=== PATIENT | male | born 1970 | race Two or more races ===

== ENCOUNTER 2023-10-02 01:28 | Emergency (ER) | payer SELFPAY ==
[~2023-10-02] VITALS: Ht 177.8 cm; Wt 86.0 kg
[2023-10-02] MEDS ORDERED: ACCU-CHEK COMFORT CURVE STRIP VI ONE (01:30)
[2023-10-02 02:12] LABS: Basophils # (auto) 0.1 10 ^3/uL (0-0.2); Eosinophils # (auto) 0.2 10 ^3/uL (0-0.8); Eosinophils % (auto) 1.4 % (0.0-7.0); Hematocrit 49.8 % (41.0-53.0); Hemoglobin 16.7 g/dL (13.5-17.5); Lymphocytes # (auto) 2.8 10 ^3/uL (0.4-5.4); Lymphocytes % (auto) 24.8 % (10.0-50.0); Mean Corpuscular Hemoglobin 30.5 pg (28.0-32.0); Mean Corpuscular Hgb Conc. 33.6 g/dL (32.0-36.0); Mean Corpuscular Volume 90.7 fL (80.0-100.0); Monocytes # (auto) 0.6 10 ^3/uL (0-1.3); Monocytes % (auto) 5.3 % (0.0-12.0); Neutrophils # (auto) 7.7 10 ^3/uL (1.6-8.6); Neutrophils % (auto) 67.5 % (37.0-80.0); Nucleated Red Blood Cells % 0.1 %; Red Blood Cells 5.49 10^6/uL (4.5-5.90); White Blood Cell 11.3 10^3/uL (4.4-10.8)
[2023-10-02 02:28] VITALS: PULSE 70; RESP 15; O2SAT 93
[2023-10-02] MEDS ORDERED: levETIRAcetam 1000 mg/100ml 100 ML IV ONE (02:30)
[2023-10-02 02:31] LABS: Alanine Aminotransferase 29 U/L (7-40); Albumin 4.4 g/dL (3.2-4.8); Alkaline Phosphatase 106 U/L (46-116); Anion Gap 7 (5-15); Aspartate Aminotransferase 25 U/L (13-40); BUN/Creatinine Ratio 5.3 (10.0-20.0); Blood Alcohol 3.3 mg/dL (<10); Blood Urea Nitrogen 8 mg/dL (9-23); Calcium 9.5 mg/dL (8.7-10.4); Carbon Dioxide 29 mmol/L (20-30); Chloride 100 mmol/L (98-107); Glucose 167 mg/dL (74-106); Magnesium 2.1 mg/dL (1.6-2.6); Potassium 3.4 mmol/L (3.5-5.1); Sodium 136 mmol/L (136-145)
[2023-10-02 02:32] LABS: Bilirubin, Total 0.5 mg/dL (0.2-1.0); Total Protein 7.8 g/dL (5.7-8.2)
[2023-10-02 02:35] VITALS: BP 167/105; PULSE 70; RESP 15; TEMP 98.5; O2SAT 94
[2023-10-02 02:38] LABS: Lactic Acid w/Reflex 2.5 mmol/L (0.4-2.0)
== END 2023-10-02 02:55 | disposition short-term general hospital (02) ==
LOC: ER 01:28
DX: I63.9 Cerebral infarction, unspecified (principal); D72.829 Elevated white blood cell count, unspecified
CPT/HCPCS: 36415; 70450; 71045; 80053; 80320; 83605; 83735; 84484; 85025; 93005; 96365; 99291; J1953